=== PATIENT | male | born 1940 | race Caucasian/White ===

== ENCOUNTER → 2020-11-08 10:47 | Outpatient (BNVA) | payer MEDICARE, OTHER, SELFPAY | PROVIDERS: Family Provider Family Medicine; PCP Family Medicine; Referring Provider Family Medicine; Visit Provider Urology | DX: R36.9 Urethral discharge, unspecified (principal); R36.1 Hematospermia | CPT/HCPCS: 81003 ==

== ENCOUNTER → 2022-03-27 15:11 | Outpatient (BNVA) | payer MEDICARE, OTHER, SELFPAY | PROVIDERS: Family Provider Family Medicine; PCP Family Medicine; Visit Provider Family Medicine | DX: R73.9 Hyperglycemia, unspecified (principal); N28.9 Disorder of kidney and ureter, unspecified; G47.33 Obstructive sleep apnea (adult) (pediatric); F41.9 Anxiety disorder, unspecified; I10 Essential (primary) hypertension | CPT/HCPCS: 80053; 80061; 83036; 85025 ==

== ENCOUNTER → 2022-05-22 10:57 | Outpatient (BNVA) | payer MEDICARE, OTHER, SELFPAY | PROVIDERS: Family Provider Family Medicine; PCP Family Medicine; Visit Provider Clinical Nurse Specialist Adult Health | DX: D64.9 Anemia, unspecified (principal); E55.9 Vitamin D deficiency, unspecified; E61.1 Iron deficiency | CPT/HCPCS: 82270; 82306; 82607; 82728; 83550; 84466; 85025 ==

== ENCOUNTER → 2022-06-22 08:46 | Outpatient (BNVA) | payer MEDICARE, OTHER, SELFPAY | PROVIDERS: Family Provider Family Medicine; PCP Family Medicine; Visit Provider Clinical Nurse Specialist Adult Health | DX: D64.9 Anemia, unspecified (principal); E55.9 Vitamin D deficiency, unspecified; E61.1 Iron deficiency | CPT/HCPCS: 82270 ==

== ENCOUNTER → 2022-08-08 08:33 | Outpatient (BNVA) | payer MEDICARE, OTHER, SELFPAY | PROVIDERS: Family Provider Family Medicine; PCP Family Medicine; Visit Provider Family Medicine | DX: E55.9 Vitamin D deficiency, unspecified (principal); J18.9 Pneumonia, unspecified organism; D64.9 Anemia, unspecified; E61.1 Iron deficiency | CPT/HCPCS: 82306; 82728; 83550; 84466; 85025 ==

== ENCOUNTER → 2022-11-15 15:40 | Outpatient (BNVA) | payer MEDICARE, OTHER, SELFPAY | PROVIDERS: Family Provider Family Medicine; PCP Family Medicine; Visit Provider Family Medicine | DX: F41.9 Anxiety disorder, unspecified (principal); E61.1 Iron deficiency; E55.9 Vitamin D deficiency, unspecified; D64.9 Anemia, unspecified; R73.9 Hyperglycemia, unspecified; F43.9 Reaction to severe stress, unspecified; Z13.6 Encounter for screening for cardiovascular disorders; J18.9 Pneumonia, unspecified organism | CPT/HCPCS: 80053; 80061; 82306; 83036; 83540; 84443; 85025 ==

== ENCOUNTER → 2022-11-22 09:05 | Outpatient (BNVA) | payer MEDICARE, OTHER, SELFPAY | PROVIDERS: Family Provider Family Medicine; PCP Family Medicine; Visit Provider Family Medicine | DX: J02.9 Acute pharyngitis, unspecified (principal); J10.1 Influenza due to other identified influenza virus with other respiratory manifestations | CPT/HCPCS: 87400; 87426 ==

== ENCOUNTER 2022-12-05 12:08 | Emergency (ER) | payer OTHER, SELFPAY ==
[2022-12-05] VITALS (11 sets, daily range): BP systolic 145–174; BP diastolic 78–97; PULSE 83; RESP 22; TEMP 36.4; O2SAT 92–95; BMI 29.5
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
[2022-12-05 14:04] LABS: Basophils # 0.1 10^3/uL (0.0-0.1); Basophils % 0.8 %; Eosinophils # 0.2 10^3/uL (0.0-0.8); Eosinophils % 1.8 %; Hematocrit 40.6 % (42.0-52.0); Hemoglobin 12.9 g/dL (11.7-16.6); Lymphocytes # 2.2 10^3/uL (0.8-4.8); Lymphocytes % 24.5 %; Mean Corpuscular HGB Conc 31.8 g/dL (30.0-36.0); Mean Corpuscular Hemoglobin 31.6 pg (28.0-34.0); Mean Corpuscular Volume 99.5 fl (80-94); Mean Platelet Volume 10.1 fL (7.4-10.4); Monocytes # 0.6 10^3/uL (0.2-0.9); Monocytes % 6.4 %; Neutrophils # 6.01 10^3/uL (1.8-7.7); Neutrophils % 66.2 %; Nucleated Red Blood Cells % 0 %; Platelet Count 224 10^3/cmm (130-400); Red Blood Count 4.08 10^6/uL (4.1-5.3); Red Cell Distribution Width 13.9 % (12.1-15.1); White Blood Count 9.1 10^3/uL (4.0-10.0)
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
[2022-12-05 14:22] LABS: Alanine Aminotransferase 13 U/L (0-41); Albumin Level 3.8 g/dL (3.5-5.2); Alkaline Phosphatase 79 U/L (40-130); Aspartate Amino Transferase 19 U/L (0-40); Blood Urea Nitrogen 15 mg/dL (8-23); Calcium 8.9 mg/dL (8.5-10.5); Carbon Dioxide 23 mmol/L (22-29); Chloride 102 mmol/L (98-107); Globulin 2.9 g/dL (1.3-4.6); Glucose 101 mg/dL (65-115); Osmolality Calculated 287 mOsm/kg (285-295); Sodium 138 mmol/L (136-145); Total Bilirubin 0.8 mg/dL (0.15-1.2); Total Protein 6.7 g/dL (6.6-8.7)
== END 2022-12-05 15:08 | disposition home or self-care (01) ==
PROVIDERS: Emergency Provider Family Medicine; PCP Family Medicine
DX: S29.012A Strain of muscle and tendon of back wall of thorax, initial encounter (principal); S16.1XXA Strain of muscle, fascia and tendon at neck level, initial encounter; V89.2XXA Person injured in unspecified motor-vehicle accident, traffic, initial encounter
CPT/HCPCS: 36415; 70450; 72040; 72072; 80053; 85025; 99284

== ENCOUNTER → 2023-02-15 15:04 | Outpatient (BNVA) | payer MEDICARE, OTHER, SELFPAY | PROVIDERS: PCP Family Medicine; Visit Provider Family Medicine | DX: D64.9 Anemia, unspecified (principal) | CPT/HCPCS: 85025 ==

== ENCOUNTER → 2023-02-22 10:17 | Outpatient (BNVA) | payer MEDICARE, OTHER, SELFPAY | PROVIDERS: PCP Family Medicine; Visit Provider Family Medicine | DX: R19.7 Diarrhea, unspecified (principal) | CPT/HCPCS: 80053; 85025 ==

== ENCOUNTER → 2023-06-18 12:58 | Outpatient (BNVA) | payer MEDICARE, OTHER, SELFPAY | PROVIDERS: PCP Family Medicine; Visit Provider Family Medicine | DX: J22 Unspecified acute lower respiratory infection (principal); E03.9 Hypothyroidism, unspecified | CPT/HCPCS: 80053; 85025; 86140 ==

== ENCOUNTER → 2023-06-28 14:28 | Outpatient (BNVA) | payer MEDICARE, OTHER, SELFPAY | PROVIDERS: PCP Family Medicine; Visit Provider Family Medicine | DX: J22 Unspecified acute lower respiratory infection (principal); J18.9 Pneumonia, unspecified organism | CPT/HCPCS: 71046 ==

== ENCOUNTER 2023-08-01 10:13 | Outpatient (CLI) | payer MEDICARE, OTHER, SELFPAY ==
--- NOTE | 2023-08-01 10:21 | XR_ITS ---
WS: [id number] Exam: XR chest 2V insp/exp [id number] Date/Time of Exam: 08/01/2023 10:33 AM Reason For Exam: J18.9 - Pneumonia, unspecified organism Comparison 06/28/2023. Comparison 06/28/2023. There are patchy bilateral airspace infiltrates which have worsened slightly since the prior study. H eart size is top limits normal. No pleural effusions or pneumothorax. Bony structures are intact. The mediastinum is normal in contour. IMPRESSION: 1. Bilateral pulmonary infiltrates slightly more prominent than noted on the last exam. No other trujillo ge.
== END 2023-08-01 10:14 | disposition home or self-care (01) ==
LOC: RAD 10:17
PROVIDERS: PCP Family Medicine; Visit Provider Family Medicine
DX: J18.9 Pneumonia, unspecified organism (principal); R06.00 Dyspnea, unspecified
CPT/HCPCS: 71046

== ENCOUNTER → 2023-08-16 08:42 | Outpatient (BNVA) | payer MEDICARE, OTHER, SELFPAY | PROVIDERS: PCP Family Medicine; Referring Provider Family Medicine; Visit Provider Internal Medicine Cardiovascular Disease | DX: I45.9 Conduction disorder, unspecified (principal); R07.9 Chest pain, unspecified | CPT/HCPCS: 93005 ==

== ENCOUNTER 2023-08-24 08:57 | Outpatient (CLI) | payer MEDICARE, OTHER, SELFPAY ==
--- NOTE | 2023-08-24 09:02 | XR_ITS ---
WS: [id number] Exam: XR chest 2V* [id number] Date/Time of Exam: 08/24/2023 9:09 AM Reason For Exam: J22 - Unspecified acute lower respiratory infection Comparison 06/28/2023. There are interstitial infiltrates present in the RIGHT upper lobe and throughout the LEFT lung which show little change. These changes are probably chronic. The lungs are fully expanded. No pleural eff usions. Heart size top limits normal. The mediastinum is normal in contour. Bony structures are intac t. IMPRESSION: 1. Bilateral interstitial infiltrates which are probably chronic. No acute process is suspected.
== END 2023-08-24 08:58 | disposition home or self-care (01) ==
PROVIDERS: PCP Family Medicine; Visit Provider Family Medicine
DX: J18.9 Pneumonia, unspecified organism (principal); J22 Unspecified acute lower respiratory infection
CPT/HCPCS: 71046

== ENCOUNTER → 2023-09-10 13:16 | Outpatient (BNVA) | payer MEDICARE, OTHER, SELFPAY | PROVIDERS: PCP Family Medicine; Referring Provider Family Medicine; Visit Provider Internal Medicine Cardiovascular Disease | DX: R06.00 Dyspnea, unspecified (principal); R07.9 Chest pain, unspecified; I45.9 Conduction disorder, unspecified; F43.9 Reaction to severe stress, unspecified; Z79.82 Long term (current) use of aspirin | CPT/HCPCS: 99203 ==

== ENCOUNTER 2023-09-14 16:17 | Emergency (ER) | payer MEDICARE, OTHER, SELFPAY ==
[2023-09-14 16:36] VITALS: BP 146/71; PULSE 79; RESP 16; TEMP 36.7; O2SAT 94; BMI 29.5
--- NOTE | 2023-09-14 16:43 | CTR_ITS ---
PROCEDURE INFORMATION: Exam: CT Cervical Spine Without Contrast Exam date and time: 09/14/2023 4:53 PM Age: 83 years old Clinical indication: Injury or trauma; Fall; Blunt trauma TECHNIQUE: Imaging protocol: Computed tomography of the cervical spine without contrast. Radiation optimization: All CT scans at this facility use at least one of these dose optimization techniques: automated exposure control; mA and/or kV adjustment per patient size (includes targeted exams where dose is matched to clinical indication); or iterative reconstruction. REPORTING DATA: Count of CT and Cardiac NM exams in prior 12 months: This patient has received [address] and 0 known cardiac nuclear medicine studies in the 12 months prior to the current study. COMPARISON: CR XR cervical spine 3V* [id number] 12/05/2022 1:09 PM RADIATION DOSE METRICS: Total DLP (mGy-cm): 691.6 FINDINGS: Bones/joints: No acute fracture. Normal alignment. No significant disc bulge or herniation. No severe spinal canal stenosis. Lungs: Lung apices are normal. Soft tissues: Unremarkable. CT/CT cervical spin wo con* [id number] IMPRESSION: No acute findings.
--- NOTE | 2023-09-14 16:43 | CTR_ITS ---
PROCEDURE INFORMATION: Exam: CT Maxillofacial Without Contrast Exam date and time: 09/14/2023 4:53 PM Age: 83 years old Clinical indication: Injury or trauma; Fall; Blunt trauma (contusions or hematomas); Nose TECHNIQUE: Imaging protocol: Computed tomography of the face without contrast. Radiation optimization: All CT scans at this facility use at least one of these dose optimization techniques: automated exposure control; mA and/or kV adjustment per patient size (includes targeted exams where dose is matched to clinical indication); or iterative reconstruction. REPORTING DATA: Count of CT and Cardiac NM exams in prior 12 months: This patient has received [address] and 0 known cardiac nuclear medicine studies in the 12 months prior to the current study. COMPARISON: CT head wo con* [id number] 09/14/2023 4:53 PM RADIATION DOSE METRICS: Total DLP (mGy-cm): 719.1 FINDINGS: Orbital cavities: Orbits are normal. Globes are unremarkable. Bones/joints: Nasal fracture. Paranasal sinuses: Normal. No air-fluid levels. Soft tissues: Unremarkable. CT/CT facial bones wo con* [id number] IMPRESSION: Nasal fracture.
--- NOTE | 2023-09-14 16:43 | CTR_ITS ---
PROCEDURE INFORMATION: Exam: CT Head Without Contrast Exam date and time: 09/14/2023 4:53 PM Age: 83 years old Clinical indication: Injury or trauma; Fall; Blunt trauma (contusions or hematomas); Without loss of consciousness TECHNIQUE: Imaging protocol: Computed tomography of the head without contrast. Radiation optimization: All CT scans at this facility use at least one of these dose optimization techniques: automated exposure control; mA and/or kV adjustment per patient size (includes targeted exams where dose is matched to clinical indication); or iterative reconstruction. REPORTING DATA: Count of CT and Cardiac NM exams in prior 12 months: This patient has received [address] and 0 known cardiac nuclear medicine studies in the 12 months prior to the current study. COMPARISON: CT head wo con* [id number] 12/05/2022 1:28 PM RADIATION DOSE METRICS: Total DLP (mGy-cm): 997.4 FINDINGS: Brain: No hemorrhage. No edema. Mild diffuse cerebral atrophy and sequela of chronic small vessel ischemic disease. No mass effect. Cerebral ventricles: No ventriculomegaly. Paranasal sinuses: Visualized sinuses are unremarkable. No fluid levels. Mastoid air cells: Visualized mastoid air cells are well aerated. Bones/joints: Unremarkable. No acute fracture. Soft tissues: Unremarkable. CT/CT head wo con* [id number] IMPRESSION: No acute intracranial abnormality.
--- NOTE | 2023-09-14 16:46 | CTR_ITS ---
PROCEDURE INFORMATION: Exam: CT Thoracic Spine Without Contrast Exam date and time: 09/14/2023 4:50 PM Age: 83 years old Clinical indication: Injury or trauma; Fall; Blunt trauma (contusions or hematomas) TECHNIQUE: Imaging protocol: Computed tomography of the thoracic spine without contrast. Radiation optimization: All CT scans at this facility use at least one of these dose optimization techniques: automated exposure control; mA and/or kV adjustment per patient size (includes targeted exams where dose is matched to clinical indication); or iterative reconstruction. REPORTING DATA: Count of CT and Cardiac NM exams in prior 12 months: This patient has received [address] and 0 known cardiac nuclear medicine studies in the 12 months prior to the current study. COMPARISON: CR XR thoracic spine 3V* [id number] 12/05/2022 1:17 PM RADIATION DOSE METRICS: Total DLP (mGy-cm): 1145.67 FINDINGS: Bones/joints: No acute fracture. Normal alignment. No significant disc bulge or herniation. No severe spinal canal stenosis. Soft tissues: Unremarkable. CT/CT thoracic spin wo con* [id number] IMPRESSION: No acute findings.
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
[2023-09-14] MEDS: lidocaine 2% INJ 20 mL 5 ML INJECTION (17:21)
--- NOTE | 2023-09-17 08:59 | DCPLANNER ---
Referral was faxed to Dr. Kelley office at [facility] on 09/17/23 at 0842. Fax number sent to: [phone]. Phone number for contact is: [phone]. Sent order, facesheet, Doctors report,ct results, and nurses documentation.
== END 2023-09-14 18:02 | disposition home or self-care (01) ==
PROVIDERS: Emergency Provider Emergency Medicine; PCP Family Medicine
DX: S02.2XXA Fracture of nasal bones, initial encounter for closed fracture (principal); S01.21XA Laceration without foreign body of nose, initial encounter; W10.9XXA Fall (on) (from) unspecified stairs and steps, initial encounter; Z79.82 Long term (current) use of aspirin
CPT/HCPCS: 12011; 70450; 70486; 72125; 72128; 99284

== ENCOUNTER 2023-09-15 09:58 | Emergency (ER) | payer MEDICARE, OTHER, SELFPAY ==
--- NOTE | 2023-09-15 10:33 | XRR_ITS ---
PROCEDURE INFORMATION: Exam: XR Left Wrist Exam date and time: 09/15/2023 10:43 AM Age: 83 years old Clinical indication: Injury or trauma; Fall; Swelling (edema); Wrist; Left; Additional info: Trauma/pain TECHNIQUE: Imaging protocol: Radiologic exam of the left wrist. Views: 3 or more views. COMPARISON: No relevant prior studies available. FINDINGS: Bones/joints: There may be mild positive ulnar variance. Evidence of ossicles or fragments projecting over dorsal carpals, suggesting fragmentation, fracture of triquetral bone, of uncertain age. No additional new appearing displaced fracture nor dislocation seen. Severe narrowing triscaphe joint. Degenerative changes 1st metacarpophalangeal joint. Soft tissues: Soft tissue swelling. No metallic foreign body seen. Vasculature: Arterial calcification. XR/XR wrist LT min 3V* [id number] IMPRESSION: 1. Evidence of ossicles or fragments projecting over dorsal carpals, suggesting fragmentation, fracture of triquetral bone, of uncertain age. Clinical correlation recommended. MRI or other follow-up may be helpful. 2. Arthritic changes. 3. Soft tissue swelling. 4. Arterial calcification.
--- NOTE | 2023-09-15 10:40 | W.ED.FALL ---
HPI - Fall General: Chief Complaint: Extremity Problem,Nontraumatic Stated Complaint: left wrist injury Time Seen by Provider: 09/15/23 10:22 History of Present Illness: 83-year-old male presents emergency department with complaints of left wrist pain and swelling. He states that he fell yesterday was seen here in the emergency department states he did have a laceration to his nose that was repaired yesterday. He states that at the time he presented to the emergency department he did not mention his left wrist pain to the ER physician because it did not bother him that much but over the night it is continued to swell and become more stiff and bruised. He states the pain is a throbbing type pain that is a 4 out of 10 at present. He states that it hurts worse to make a fist or flex or extend his hand. He denies numbness or tingling to the extremity. Review of Systems General: Reports: 10 or more systems reviewed and unremarkable except in HPI and below Musc: Reports: extremity pain, extremity swelling and joint pain PFSH ED PFSH: Medical History Elevated cholesterol Hematospermia Surgical History No pertinent past surgical history Family History Father , AT AGE 74 SPINE Cancer Social History Smoking and tobacco/nicotine status: never used tobacco/nicotine Alcohol intake: current Alcohol intake frequency: holidays/special occasions only Marital status: Current occupational status: retired Physical Exam Narrative: EXAM NARRATIVE: Constitutional: the patient appears well nourished and of normal development. Vital signs as documented. No acute distress at present. Alert and oriented-to person, place, time and situation. Head, eyes, ears, nose, mouth, throat: Normocephalic, atraumatic. Pupils-equal, round, reactive to light. No scleral icterus. Normal-appearing external ears. Normal appearing nasal turbinates, no drainage. No obvious oral lesions, posterior oropharynx without erythema or exudates. Neck: Supple, trachea is midline, no lymphadenopathy, no jugular venous distension, thyromegaly, or carotid bruits. Carotid upstrokes are brisk bilaterally. Lungs: clear to auscultation to all lung palmer. Symmetrical rise and fall of chest, no obvious signs of increased work of breathing at present. Cardiac: Regular rate and rhythm, positive S1, S2. No murmurs, rubs or gallops that I can appreciate Abdomen: Soft, non-tender to palpation, normal active bowel sounds to all quadrants. No palpable masses, no organomegaly and abdominal bruits. Extremities: 2+ pulses in the upper extremities that are equal bilaterally, 2+ pulses in the lower extremities that are equal bilaterally. Non-edematous. Moves all extremities well, sensation to all extremities are noted. Moderate swelling to the left wrist dorsal aspect he is tender to palpation there is ecchymosis to the greater thenar eminence on the left hand as well as to the dorsal aspect the left hand. Capillary refill remains less than 3 seconds. Skin: Warm, dry, intact. Sutured laceration to the nasal bridge. There is significant bruising/ecchymosis to the left infraorbital region. Procedures Orthopedic Splinting/Casting Injury #1: Side: left Upper Extremity Injury Location: wrist Upper Extremity Immobilizer: sugar tong splint Additional Comments: I reviewed the radiographic examination and determined the need for fracture stabilization via splint. A left sugar tong splint was utilized. The splint was ordered and placed by the nursing staff, under the direct supervision of myself (ER Physician. The patient's neurovascular status was evaluated and was intact before and after the application of the splint. Capillary refill was less than 3 seconds before and after the application. The patient was splinted and the most appropriate anatomical and functional position at that time. Anticipatory guidance, return precautions and red flag precautions were provided to the patient and support person. The patient/support person was advised to contact the patient's primary care provider or Orthopedic provider to make a follow-up appointment for additional evaluation and treatment within the next 3-5 days. Course Vital Signs: Vital signs: Vital Signs Respiratory Rate 18 09/15/23 12:01 MDM - Fall Medical Decision Making Physical exam completed and documented, I reviewed the patient's previous medical record from yesterday I will provide him a cold compress as well as a radiographic examination of the left wrist and we will splint accordingly. Medical Records I reviewed the patient's medical records. Lab Data Radiology Impressions Wrist X-Ray 09/15/23 10:33 IMPRESSION: 1. Evidence of ossicles or fragments projecting over dorsal carpals, suggesting fragmentation, fracture of triquetral bone, of uncertain age. Clinical correlation recommended. MRI or other follow-up may be helpful. 2. Arthritic changes. 3. Soft tissue swelling. 4. Arterial calcification. All radiology interpretation(s) finalized by discharge Discharge Plan Discharge Patient Disposition: Home Clinical Impression: Acute pain of left wrist Fracture of triquetrum of left wrist Qualifiers: Encounter type: initial encounter Fracture type: closed Fracture alignment: nondisplaced Qualified Code(s): S62.115A - Nondisplaced fracture of triquetrum [cuneiform] bone, left wrist, initial encounter for closed fracture Accidental fall Qualifiers: Encounter type: subsequent encounter Qualified Code(s): W19.XXXD - Unspecified fall, subsequent encounter Condition: Stable Prescriptions: No Action niacin 500 mg tablet 500 mg PO QAM cholecalciferol (vitamin D3) 50 mcg (2,000 unit) capsule 50 mcg PO QAM aspirin 325 mg tablet 325 mg PO QAM latanoprost 0.005 % drops 1 drp ophthalmic (eye) BEDTIME alprazolam 0.5 mg tablet 0.5 mg PO TID PRN (Reason: stress/anxiety) Qty: 90 5RF simvastatin 40 mg tablet 40 mg PO BEDTIME cetirizine [Zyrtec] 10 mg Tablet 10 mg PO DAILY PRN (Reason: Allergy Symptoms) albuterol sulfate 90 mcg/actuation Hfa Aerosol Inhaler 2 puff inhalation QID PRN (Reason: Shortness Of Breath) Men's Multivitamin 400-20-300 mcg Tablet 1 tab PO QAM hydrochlorothiazide 25 mg tablet 25 mg PO QAM Discharge Orders: Discharge ED (Routine); Ordered 09/15/23 Ordered By: Genaro Graham Referrals: Joseline Davis MD [Physician] - Kirill García DO [Primary Care Provider] - Discharge Diet: Advance as tolerated Discharge Activity: Resume usual activity Patient Instructions: Opioid Safety, Pain Management Activity Restrictions/Additional Instructions: Activity Restrictions/Additional Instructions: Thank you for choosing [facility] for your healthcare needs today. Please realize that you were seen in the Emergency Department and that we are providing you with an emergency medical screening exam and this may not be a complete and all inclusive of all the testing and or medical work-up that you may need to determine your ailment or severity of your illness. It is very important that you follow-up as instructed with your Primary care provider or Specialist for additional evaluation and to discuss your medical treatment plan. You may return to the Emergency Department should you have concerns or if your condition changes or worsens in any way. Coding Level of Care Code ED Supervisor [employer] for Braden Burnham
[2023-09-15 12:01] VITALS: RESP 18
== END 2023-09-15 12:05 | disposition home or self-care (01) ==
PROVIDERS: Emergency Provider Internal Medicine; PCP Family Medicine
DX: S62.115A Nondisplaced fracture of triquetrum [cuneiform] bone, left wrist, initial encounter for closed fracture (principal); W18.30XA Fall on same level, unspecified, initial encounter; Z79.82 Long term (current) use of aspirin
CPT/HCPCS: 29125; 73110; 99283

== ENCOUNTER → 2023-09-19 14:58 | Outpatient (BNVA) | payer MEDICARE, OTHER, SELFPAY | PROVIDERS: PCP Family Medicine; Referring Provider Internal Medicine; Visit Provider Physician Assistant | DX: S60.212A Contusion of left wrist, initial encounter; S62.115A Nondisplaced fracture of triquetrum [cuneiform] bone, left wrist, initial encounter for closed fracture; W01.0XXA Fall on same level from slipping, tripping and stumbling without subsequent striking against object, initial encounter | CPT/HCPCS: 73110; 99203 ==

== ENCOUNTER 2023-09-20 09:16 | Outpatient (CLI) | payer MEDICARE, OTHER, SELFPAY ==
[2023-09-20 09:18] VITALS: BMI 30.4
--- NOTE | 2023-09-20 09:37 | ECG_ITS ---
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 Interpretive Statements NAME OF STUDY: LEXISCAN SESTAMIBI STRESS TEST INDICATION: Chest Pain PROCEDURE: At the baseline, the blood pressure was 147/82 mmHg with a heart rate of 66 bpm. The electrocardiogram showed sinus rhythm, normal axis. Incomplete right bundle branch block. Nonspecific ST depression. ??? The Lexiscan was infused over a period of 20 seconds. A total of 0.4 milligrams of Lexiscan was infused. The stress phase was continued for a total of 5 minutes. Heart rate at the end of the stress phase was 68 bpm with a blood pressure of 113/56 mmHg. The EKG at the peak infusion revealed no significant ST-T wave changes. ??? Sestamibi was injected 20 seconds after the Lexiscan infusion. ??? Blood pressure at the end of the recovery phase was 108/60 mmHg with a heart rate of 70 beats per minute. ??? CONCLUSION: 1. No significant EKG changes with the LexiScan infusion. 2. No LexiScan induced chest pain or cardiac arrhythmia. 3. Normal blood pressure and heart rate response. 4. Sestamibi/sestamibi perfusion scan pending; see separate report. Electronically Signed On 09-24-2023 11:33:15 TEAM ASSEMBLY LINE MACHINE OPERATOR by Rosario Goodwin M.D. [id number]
--- NOTE | 2023-09-20 09:38 | NMCV_ITS ---
NM montez perf SPECT r/s* [id number] Med Santos Age: 83 Gender: M : 1940 Exam Date: 09/20/2023 09:38 Ordering Phys: Rocco Villasenor MD ([email or web address]) Technologist: PITER Glynn Exam Location: [facility] Indications: CHEST PAIN STRESS TEST Please see separate stress test report in [facility] for full findings IMAGE PROTOCOL Rest/Stress 1 Lexiscan Day Radiopharmaceutical Dose (mCi) Administration Site Administered by Rest: Tc-99m 10.4 IV PITER [place] Sestamibi Stress:Tc-99m 32.4 IV PITER [place] Sestamibi Rest: 20-Sep-2023 60 Discovery 630 Stress: 20-Sep-2023 30 Discovery 630 0.4mg Lexiscan. Images obtained in supine and prone position. SPECT RESULTS Technical Quality: Excellent Raw Data Analysis: Normal Image Corrections: No attenuation or motion correction applied Summed Stress Score: 4 Summed Rest Score: 0 Summed Difference Score: 4 PERFUSION FINDINGS Small sized perfusion abnormality of mild severity of mid to apical anterior and apical lateral wall on supine stress images were slightly improved tracer uptake on prone stress images. FUNCTIONAL RESULTS (calculated via Gated SPECT) Stress Image LV EF (%): 74 Stress EDV (mL):117 TID: 1.11 Stress ESV (mL):30 FUNCTIONAL FINDINGS: The left ventricle is normal in size. Transient Ischemia Dilatation of 1.1. The left ventricular ejection fraction is normal with a value of 74%. There is normal left ventricular wall thickening. IMPRESSIONS 1. Small sized reversible perfusion abnormality of mild severity of mid to apical anterior and apical lateral rosas. This may represent small area of ischemia in left anterior descending artery territory. However, with somewhat improved tracer uptake in prone images attenuation artifact cannot be completely ruled out. 2. Overall left ventricular systolic function is normal without regional wall motion abnormalities, LVEF=74%. 3. No Lexiscan induced EKG changes. Refer to separate report for details. 4. No prior similar studies to compare. Rosario Goodwin MD (Electronically Signed) Final Date: 24 September 2023 11:30 S
[2023-09-20] MEDS: regadenoson 0.4 Mg/5 ml Syringe IVP (12:10)
[2023-09-20 12:33] VITALS: BP 128/57; PULSE 81
== END 2023-09-20 09:17 | disposition home or self-care (01) ==
LOC: CDL 09:16
PROVIDERS: PCP Family Medicine; Visit Provider Internal Medicine Cardiovascular Disease
DX: R07.9 Chest pain, unspecified (principal)
CPT/HCPCS: 36415; 78452; 93017; 96374; A9500; J2785

== ENCOUNTER 2023-09-28 10:18 | Outpatient (CLI) | payer MEDICARE, OTHER, SELFPAY ==
--- NOTE | 2023-09-28 12:00 | CT_ITS ---
WS: [id number] CT chest w con* [id number] HISTORY: Abnormal chest radiograph. TECHNIQUE: Axial imaging performed through the thorax. Coronal and sagittal reformats are submitted. All CT scans at [facility] use at least one of these dose optimization techniques: automated exposure control; mA and/or kV adjustment per patient size (includes targeted exams where dose is mat ched to clinical indication); or iterative reconstruction. CONTRAST: Omnipaque 350; 100 mL IV. DLP: 577.16 mGy.cm COMPARISON: Chest radiograph 08/24/2023 Lungs and central airway: Lung volumes are slightly decreased. Subpleural and paraseptal emphysema. T here is honeycombing the periphery of the upper and lower lung palmer. Mild bronchiectasis in the low er lung palmer. There is no mass. No nodule. Pleura: Normal. No pleural effusion. Heart and pericardium: Normal size heart with no pericardial effusion. Mediastinum and amish: Bilateral hilar lymphadenopathy. Largest lymph node on the RIGHT measures 1.7 c m. There are numerous smaller bilateral hilar lymph nodes. This may all be reactive lymphadenopathy. Vessels: Moderate atherosclerosis aorta. There is no aneurysm. Calcified plaque and intimal thickenin g. Pulmonary artery size is top normal. Chest wall and lower neck: No soft tissue masses. Upper abdomen: 2.3 cm simple cyst upper pole RIGHT kidney. Bilateral renal cortical thinning upper po les. Mild stenosis proximal celiac axis. Osseous structures: No destructive process. IMPRESSION: 1. Bilateral honeycombing with traction bronchiectasis and interstitial lung disease involving the up per and lower lung palmer. This is most typical for UIP. The upper zonal distribution can also be see n with UIP but also consider chronic hypersensitivity pneumonitis and collagen vascular disease. 2. No mass. 3. Indeterminate hilar lymph nodes. These may be reactive and related to the patient's interstitial l alma disease. Consider follow-up chest CT in 3 to 4 months with IV contrast.
[2023-09-28 12:15] LABS: Blood Urea Nitrogen 19 mg/dL (8-23)
[2023-09-28] MEDS: iohexol 350 mg/mL 500 mL Btl (per mL) IV (12:20)
== END 2023-09-28 10:19 | disposition home or self-care (01) ==
PROVIDERS: PCP Family Medicine; Visit Provider Family Medicine
DX: R07.9 Chest pain, unspecified (principal); R06.00 Dyspnea, unspecified; J22 Unspecified acute lower respiratory infection; J98.4 Other disorders of lung
CPT/HCPCS: 71260; 82565; 84520; 99213; Q9967

== ENCOUNTER → 2023-10-04 13:28 | Outpatient (BNVA) | payer MEDICARE, OTHER, SELFPAY | PROVIDERS: PCP Family Medicine; Visit Provider Physician Assistant | DX: S60.212A Contusion of left wrist, initial encounter (principal); W01.0XXA Fall on same level from slipping, tripping and stumbling without subsequent striking against object, initial encounter | CPT/HCPCS: 73110; 99213 ==

== ENCOUNTER → 2023-11-20 14:12 | Outpatient (BNVA) | payer MEDICARE, OTHER, SELFPAY | PROVIDERS: PCP Family Medicine; Visit Provider Internal Medicine Pulmonary Disease | DX: J84.9 Interstitial pulmonary disease, unspecified (principal); I45.9 Conduction disorder, unspecified; D64.9 Anemia, unspecified; R06.02 Shortness of breath; R06.00 Dyspnea, unspecified; G47.33 Obstructive sleep apnea (adult) (pediatric); J82.83 Eosinophilic asthma; Z91.128 Patient's intentional underdosing of medication regimen for other reason; Z87.891 Personal history of nicotine dependence | CPT/HCPCS: 36415; 82728; 82785; 83540; 83550; 84466; 85025; 85651; 86003; 86038; 86140; 86200; 86235; 86331; 86431; 86606; 86609; 99204 ==

== ENCOUNTER 2023-12-13 07:30 | Outpatient (CLI) | payer MEDICARE, OTHER, SELFPAY | END 2023-12-13 07:31 | disposition home or self-care (01) | LOC: RT 07:31 | PROVIDERS: PCP Family Medicine; Visit Provider Internal Medicine Pulmonary Disease | DX: R06.02 Shortness of breath (principal) | CPT/HCPCS: 94010; 94618; 94726; 94729 ==

== ENCOUNTER → 2024-01-01 13:25 | Outpatient (BNVA) | payer MEDICARE, OTHER, SELFPAY | PROVIDERS: PCP Family Medicine; Visit Provider Internal Medicine Pulmonary Disease | DX: R06.00 Dyspnea, unspecified (principal); J82.83 Eosinophilic asthma; J84.9 Interstitial pulmonary disease, unspecified; G47.33 Obstructive sleep apnea (adult) (pediatric); D64.9 Anemia, unspecified; Z99.81 Dependence on supplemental oxygen; J47.9 Bronchiectasis, uncomplicated; Z87.891 Personal history of nicotine dependence | CPT/HCPCS: 99214 ==

== ENCOUNTER 2024-01-24 06:26 | Outpatient (CLI) | payer MEDICARE, OTHER, SELFPAY | END 2024-01-24 06:27 | disposition home or self-care (01) | PROVIDERS: PCP Family Medicine; Visit Provider Internal Medicine Pulmonary Disease | DX: J84.9 Interstitial pulmonary disease, unspecified (principal) | CPT/HCPCS: 94618 ==

== ENCOUNTER → 2024-01-31 11:29 | Outpatient (BNVA) | payer MEDICARE, OTHER, SELFPAY | PROVIDERS: PCP Family Medicine; Visit Provider Family Medicine | DX: K59.00 Constipation, unspecified (principal) | CPT/HCPCS: 74018 ==

== ENCOUNTER → 2024-04-14 11:03 | Outpatient (BNVA) | payer MEDICARE, OTHER, SELFPAY | PROVIDERS: PCP Family Medicine; Visit Provider Family Medicine | DX: E55.9 Vitamin D deficiency, unspecified (principal); F41.9 Anxiety disorder, unspecified; D64.9 Anemia, unspecified; E61.1 Iron deficiency; J84.9 Interstitial pulmonary disease, unspecified; G47.33 Obstructive sleep apnea (adult) (pediatric); E03.9 Hypothyroidism, unspecified; R06.00 Dyspnea, unspecified; R73.9 Hyperglycemia, unspecified | CPT/HCPCS: 80053; 82652; 85025; 86140 ==

== ENCOUNTER → 2024-06-25 14:03 | Outpatient (BNVA) | payer MEDICARE, OTHER, SELFPAY | PROVIDERS: PCP Family Medicine; Visit Provider Internal Medicine Critical Care Medicine | DX: J84.9 Interstitial pulmonary disease, unspecified (principal); J84.89 Other specified interstitial pulmonary diseases; J96.21 Acute and chronic respiratory failure with hypoxia; Z79.899 Other long term (current) drug therapy; J96.11 Chronic respiratory failure with hypoxia; Z99.81 Dependence on supplemental oxygen; J47.9 Bronchiectasis, uncomplicated; J82.83 Eosinophilic asthma | CPT/HCPCS: 99214 ==

== ENCOUNTER → 2024-09-15 13:35 | Outpatient (BNVA) | payer MEDICARE, OTHER, SELFPAY | PROVIDERS: PCP Family Medicine; Visit Provider Internal Medicine Cardiovascular Disease | DX: I10 Essential (primary) hypertension (principal); E78.5 Hyperlipidemia, unspecified; R94.39 Abnormal result of other cardiovascular function study; Z87.891 Personal history of nicotine dependence | CPT/HCPCS: 99214 ==

== ENCOUNTER → 2024-10-16 10:20 | Outpatient (BNVA) | payer MEDICARE, OTHER, SELFPAY | PROVIDERS: PCP Family Medicine; Visit Provider Family Medicine | DX: Z79.899 Other long term (current) drug therapy (principal); R73.9 Hyperglycemia, unspecified; J84.9 Interstitial pulmonary disease, unspecified | CPT/HCPCS: 80053; 83036; 85025 ==

== ENCOUNTER → 2024-12-11 12:22 | Outpatient (BNVA) | payer MEDICARE, OTHER, SELFPAY | PROVIDERS: PCP Family Medicine; Visit Provider Family Medicine | DX: J84.9 Interstitial pulmonary disease, unspecified (principal) | CPT/HCPCS: 80053; 85025 ==

== ENCOUNTER → 2025-03-16 16:00 | Outpatient (BNVA) | payer MEDICARE, OTHER, SELFPAY | PROVIDERS: PCP Family Medicine; Visit Provider Internal Medicine Cardiovascular Disease | DX: R07.2 Precordial pain (principal); R06.00 Dyspnea, unspecified; Z99.81 Dependence on supplemental oxygen; Z79.82 Long term (current) use of aspirin; Z87.891 Personal history of nicotine dependence | CPT/HCPCS: 99204 ==

== ENCOUNTER → 2025-06-11 11:26 | Outpatient (BNVA) | payer MEDICARE, OTHER, SELFPAY | PROVIDERS: PCP Family Medicine; Visit Provider Family Medicine | DX: Z79.899 Other long term (current) drug therapy (principal); F41.9 Anxiety disorder, unspecified; R73.9 Hyperglycemia, unspecified; D64.9 Anemia, unspecified | CPT/HCPCS: 80053; 83036; 85025 ==